=== PATIENT | female | born 1960 | race African-American/Black ===

== ENCOUNTER 2016-02-15 10:59 | Inpatient (IN) | payer OTHER ==
[2016-02-29] MEDS ORDERED: PREV30CA11 PO (13:45)
[2016-02-29] MEDS ORDERED: HYDR12.56 PO (13:45)
[2016-02-29] MEDS ORDERED: BENZ100 PO (13:45)
[2016-02-29] MEDS ORDERED: VENTAER INH (13:45)
[2016-02-29] MEDS ORDERED: LISI10TA3 PO (13:45)
[2016-04-04] MEDS ORDERED: FERR1TAB36 PO (09:33)
[2016-04-04] MEDS ORDERED: IPRA0.06 EACH NARE (09:33)
[2016-04-05] MEDS ORDERED: APREPITANT 40 MG CAP PO SCH (09:45)
[2016-04-05] MEDS ORDERED: ceFAZolin 2 GM PREMIX 50 ML IV SCH (09:45)
[2016-04-05] MEDS ORDERED: ONDANSETRON HCL 4 MG/2 ML VIAL IV PUSH SCH (09:45)
[2016-04-05] MEDS ORDERED: ACETAMINOPHEN 1000 MG/100 ML VIAL IV SCH (09:45)
[2016-04-05] MEDS ORDERED: metroNIDAZOLE 500 MG INJ 100 ML IV SCH (09:45)
[2016-04-05] MEDS ORDERED: METOPROLOL TARTRATE 25 MG TAB PO PRN (09:45)
[2016-04-05] MEDS ORDERED: INSULIN HUMAN REGULAR 1,000 UNITS/10 ML VIAL SQ PRN (09:45)
[2016-04-05] MEDS ORDERED: LACTATED RINGER'S 1000 ML IV SCH (10:00)
[2016-04-05] MEDS ORDERED: SODIUM CHLORID 0.9% 500 ML IV SCH (10:00)
[2016-04-05] MEDS ORDERED: ONDANSETRON HCL 4 MG/2 ML VIAL IV PUSH ONE (10:03)
[2016-04-05] MEDS ORDERED: NORMOSOL R INJ 1,000 ML IV ONE (10:03)
[2016-04-05] MEDS ORDERED: PROPOFOL 200 MG/20 ML AMP IV ONE (10:03)
[2016-04-05] MEDS ORDERED: PHENYLEPH/NS 1000 MCG/10 ML SYR IV ONE (10:03)
[2016-04-05] MEDS ORDERED: NEOSTIGMINE 3 MG/3 ML SYR IV ONE (10:03)
[2016-04-05] MEDS ORDERED: ePHEDrine/NS 50 MG/5 ML SYR IV ONE (10:03)
[2016-04-05] MEDS ORDERED: LACTATED RINGER'S 1000 ML INJ 1,000 ML IV ONE (10:03)
[2016-04-05 10:30] VITALS: BP 113/80; PULSE 87; RESP 18; TEMP 99.1; O2SAT 97
[2016-04-05] MEDS ORDERED: FAMOTIDINE 20 MG/2 ML VIAL ONE (11:10)
[2016-04-05] MEDS ORDERED: DEXAMETHASONE SOD PHOS 4 MG/ML VIAL ONE (11:28)
[2016-04-05] MEDS ORDERED: MIDAZOLAM HCL 2 MG/2 ML VIAL ONE (11:28)
[2016-04-05 11:53] LABS: ANION GAP 7 MEQ/L (5-15); AST (GOT) 6 U/L (15-37); BICARBONATE 29.7 MEQ/L (21.0-32.0); BLOOD UREA NITROGEN 13 MG/DL (7-18); CHLORIDE 102 MEQ/L (98-107); GLOMERULAR FILTRATION RATE 93 ML/MIN (>89); POTASSIUM 3.2 MEQ/L (3.5-5.1); SODIUM (NA) 139 MEQ/L (136-145)
[2016-04-05 11:56] LABS: ALKALINE PHOSPHATASE 63 U/L (45-117); ALT (GPT) 14 U/L (10-53); TOTAL BILIRUBIN ADULT 0.6 MG/DL (0.2-1.0)
[2016-04-05] MEDS ORDERED: BUPIVACAINE/EPINEPHRINE 0.25% 50 ML VIAL INFIL ONE (12:15)
[2016-04-05] MEDS ORDERED: SUGAMMADEX SODIUM 200 MG/2 ML VIAL IV PUSH ONE ×2 (13:04)
[2016-04-05] MEDS ORDERED: POTASSIUM CHLOR 20 MEQ PREMIX 100 ML ONE (15:36)
[2016-04-05] MEDS ORDERED: NALOXONE HCL 0.4 MG/ML AMP IV PRN (15:45)
[2016-04-05] MEDS ORDERED: SODIUM CHLORIDE 0.9% FLUSH 5 ML FLUSH IVF PRN (15:45)
[2016-04-05] MEDS ORDERED: ACETAMINOPHEN 325MG/HYDROcodone 7.5MG/15ML UDC PO PRN (15:45)
[2016-04-05] MEDS ORDERED: ONDANSETRON HCL 4 MG/2 ML VIAL IV PRN (15:45)
[2016-04-05] MEDS ORDERED: Post-op Orders (for Pharmacy) MISC XX ONE (15:45)
[2016-04-05] MEDS ORDERED: MAGNESIUM HYDROXIDE SUSP 30 ML CUP PO PRN (15:45)
[2016-04-05] MEDS ORDERED: FUROSEMIDE 40 MG/4 ML VIAL ONE (15:50)
[2016-04-05] MEDS ORDERED: MORPHINE SULFATE 30 MG/30 ML PCA IV SCH (16:00)
[2016-04-05] MEDS ORDERED: fentaNYL CITRATE 250 MCG/5 ML AMP ONE (16:15)
[2016-04-05] MEDS ORDERED: DO NOT ADM ANY ANTICOAGULANT DRUGS XX PRN (16:45)
[2016-04-05] MEDS ORDERED: *PROMETHAZINE 25 MG/ML VIAL PERIprocedural use ONLY ONE (16:46)
[2016-04-05] MEDS ORDERED: *morphine SULFATE 8 MG/ML PERIprocedure ONLY ONE (16:51)
[2016-04-05] MEDS: SODIUM CHLOR 0.9% 1000 ML INJ 1,000 ML IV SCH (18:00)
[2016-04-05 20:00] VITALS: BP 114/72; PULSE 84; RESP 20; TEMP 97; O2SAT 97
[2016-04-05] MEDS: SODIUM CHLORIDE 0.9% FLUSH 5 ML FLUSH IVF SCH (20:03)
[2016-04-05] MEDS: metroNIDAZOLE 500 MG INJ 100 ML IV SCH (20:03)
[2016-04-05] MEDS: PCA - TOTAL MG MORPHINE DELIVERED PER SHIFT SCH (22:00)
[2016-04-06] VITALS: BP 121/71; PULSE 81; RESP 20; TEMP 98.4; O2SAT 96
[2016-04-06] MEDS: SODIUM CHLOR 0.9% 1000 ML INJ 1,000 ML IV SCH ×3 (00:54→19:47)
[2016-04-06 04:00] VITALS: BP 118/66; PULSE 78; RESP 18; TEMP 97.2; O2SAT 98
[2016-04-06] MEDS: metroNIDAZOLE 500 MG INJ 100 ML IV SCH ×2 (04:03→10:42)
[2016-04-06] MEDS: PCA - TOTAL MG MORPHINE DELIVERED PER SHIFT SCH ×2 (06:00→09:39)
[2016-04-06 08:00] VITALS: BP 131/87; PULSE 89; RESP 18; TEMP 97.4; O2SAT 96
[2016-04-06] MEDS: SODIUM CHLORIDE 0.9% FLUSH 5 ML FLUSH IVF SCH ×2 (09:00→19:03)
[2016-04-06] MEDS: LISINOPRIL 10 MG TAB PO SCH (09:18)
[2016-04-06] MEDS: ACETAMINOPHEN 325MG/HYDROcodone 7.5MG/15ML UDC PO PRN ×3 (10:42→22:17)
[2016-04-06 12:00] VITALS: BP 129/72; PULSE 91; RESP 17; TEMP 97.9; O2SAT 95
[2016-04-06 15:00] VITALS: BP 161/79; PULSE 90; RESP 17; TEMP 99.5; O2SAT 94
[2016-04-06] MEDS: ENOXAPARIN SODIUM 40 MG/0.4 ML SYRINGE SQ SCH (15:18)
[2016-04-06 20:00] VITALS: BP 140/67; PULSE 101; RESP 20; TEMP 97.5; O2SAT 94
[2016-04-07] VITALS: BP 134/70; PULSE 96; RESP 20; TEMP 97; O2SAT 96
[2016-04-07] MEDS: MORPHINE SULFATE 4 MG/ML INJ IV PUSH PRN ×2 (00:58→11:27)
[2016-04-07] MEDS: ACETAMINOPHEN 325MG/HYDROcodone 7.5MG/15ML UDC PO PRN ×3 (04:20→17:32)
[2016-04-07 08:00] VITALS: BP 146/76; PULSE 97; RESP 17; TEMP 99.8; O2SAT 91
[2016-04-07] MEDS: SODIUM CHLORIDE 0.9% FLUSH 5 ML FLUSH IVF SCH (08:47)
[2016-04-07] MEDS: SODIUM CHLOR 0.9% 1000 ML INJ 1,000 ML IV SCH ×2 (08:49→15:58)
[2016-04-07] MEDS: LISINOPRIL 10 MG TAB PO SCH (08:49)
--- NOTE | 2016-04-07 11:15 | RADRPT ---
EXAM DATE/TIME: 04/07/2016 10:50 [facility] COMPARISON: No previous studies available for comparison. INDICATIONS : Right shoulder pain after hiatal hernia surgery. MEDICAL HISTORY : None. SURGICAL HISTORY : hiatal hernia surgery ENCOUNTER: Initial ACUITY: 1 day PAIN SCORE: 10/10 LOCATION: Right shoulder FINDINGS: Single AP view of the right shoulder demonstrates normal glenohumeral alignment. Mild a.c. joint dege nerative change. No acute abnormality seen. Lungs clear. CONCLUSION: No acute disease. Marcia Bergeron MD on April 07, 2016 at 11:13 Board Certified Radiologist. This report was verified electronically.
[2016-04-07 12:00] VITALS: BP 144/78; PULSE 96; RESP 17; TEMP 99.8; O2SAT 93
[2016-04-07] MEDS: ENOXAPARIN SODIUM 40 MG/0.4 ML SYRINGE SQ SCH (15:59)
[2016-04-07 16:00] VITALS: BP 144/75; PULSE 101; RESP 17; TEMP 98; O2SAT 95
--- NOTE | 2016-04-07 17:20 | HHI.PR ---
Subjective Subjective Notes shoulder pain slightly better no N/V Objective Vitals/I&O Vital Signs Date Time Temp Pulse Resp B/P Pulse Ox O2 Delivery O2 Flow Rate FiO2 04/07/16 16:00 98.0 101 17 144/75 95 04/05/16 18:00 Nasal Cannula 2 Abdomen: Post-op tenderness Extremities: Perfused Wound Wound : Wound Location: Abdomen Appearance: Clean & Dry A/P Assessment and Plan POD# 2 S/P repair of paraesophageal hernia with partial fundoplication Normal post op changes D/C home today Pablo Wei MD Apr 07, 2016 17:20
--- NOTE | 2016-04-12 12:27 | MP ---
cc: VERONIQUE MOISE DATE OF SURGERY: 04/12/2016 PREOPERATIVE DIAGNOSIS Gastroesophageal reflux unresponsive to medical management with paraesophageal hernia. POSTOPERATIVE DIAGNOSIS Gastroesophageal reflux unresponsive to medical management with paraesophageal hernia. PROCEDURE Robot-assisted laparoscopic paraesophageal with a 270-degree fundoplication. SURGEON Veronique Moise LEVEL VIAL GRINDER Ricki Veronica ANESTHESIA: General endotracheal. ESTIMATED BLOOD LOSS Less than 50 cc. FINDINGS Fatty liver as well as moderate size paraesophageal hernia. SPECIMENS None. COMPLICATIONS None. DETAILS OF PROCEDURE The patient was brought to the operating room and placed on the operating room table in the supine position. Bilateral sequential inflation devices were placed on the lower extremities. General anesthesia was instituted. A Young catheter was placed. Antibiotics were initiated. The abdomen was prepped and draped sterilely. A 5 mm port was placed 15 cm distal to the xiphoid just to the left of the midline. A 5 mm left upper quadrant port was placed. A robotic 8 mm left upper quadrant port, a robotic 8 mm right upper quadrant and a 5 mm right upper quadrant port was placed. The 5 mm epigastric port was switched out to a 12 mm port. Prior to placement of all ports, the skin and peritoneum were anesthetized with 0.25% Marcaine with epinephrine. The patient was then placed in reverse Trendelenburg position. The Stephenie-Flex retractor was placed. The left lobe of the liver was retracted. The abdominal cavity was inspected with findings as above. Seven 0 silk sutures were placed into the upper abdomen as well as a Magnolia drain and Ray-Margareth gauze. At this point, the laparoscopic towel was removed from the patient's bedside. The robot was then docked at the patient's bedside. I then broke scrub and went to the console. Attention was next focused on the patient's right. The hepatogastric ligament was opened. The right ling of the diaphragm was identified. It was dissected inferiorly from right to left. The angle of His was then taken down. The left ling of the diaphragm was dissected inferiorly. The graspers were then placed from right to left. A Magnolia drain was then brought around the GE junction which was then retracted into the abdominal cavity. The ling of the diaphragm was then further dissected anteriorly and posteriorly. The distal esophagus was dissected in the mediastinum and brought into the abdominal cavity. The vasculature on the greater curve of the stomach was from the GE junction for a third of the distance of the greater curve of the stomach. Attention was then focused back on the crura of the diaphragm. The hernia sac was excised. The ling of the diaphragm was approximated with 0 silk suture. Three interrupted [id number] stitches were placed inferiorly. The diaphragm came together without tension. A fundoplication was then created in the greater curvature of the stomach to the patient's right side around the lower esophagus the GE junction was created. The posterior stitch was placed to the diaphragm on the right side superiorly at the ten o'clock position. A stitch was placed from the esophagus to the crura of the diaphragm and to the stomach. Three additional interrupted stitches were placed from the esophagus to the stomach. On the left side of the esophagus, a one o'clock stitch was placed to the crura of the esophagus and the fundus of the stomach. Three additional interrupted stitches were placed to create a 270 degree wrap. The operative field was inspected. Hemostasis was assured. The robot was then undocked from the patient. The laparoscopic tower connected. The needles were removed from the abdominal cavity as well as the [place] and Ray-Margareth gauze. The Stephenie-Flex retractor was removed. The 10 mm port sites were approximated with #0 Vicryl suture using a fascial closure device. The C02 was then released. All ports were removed. All skin incisions were closed with 4-0 Monocryl. The abdominal wall was cleaned and a sterile dressing was placed. The patient was awakened and taken to the recovery room. All instruments and sponge and needle counts were reported as correct at the end of the procedure. MD ISABELLA Vinson/FELIX /4:17 PM /12:09 PM VALERIA
== END 2016-04-07 17:33 | disposition home or self-care (01) | DRG 328 ==
LOC: HSDI 04-05 09:08 → N07A 04-05 18:53
PROVIDERS: ADMIT Surgery; ATTEND Surgery
PROC: 0BQR4ZZ (ICD-10-PCS; 2016-04-05)
PROC: 0DV44ZZ Restriction of Esophagogastric Junction, Percutaneous Endoscopic Approach (ICD-10-PCS; 2016-04-05)
PROC: 8E0W4CZ Robotic Assisted Procedure of Trunk Region, Percutaneous Endoscopic Approach (ICD-10-PCS; 2016-04-05)
PROC: 0BQS4ZZ (ICD-10-PCS; principal; 2016-04-05 11:30)
DX: K44.9 Diaphragmatic hernia without obstruction or gangrene (principal); K76.0 Fatty (change of) liver, not elsewhere classified; I10 Essential (primary) hypertension; K21.9 Gastro-esophageal reflux disease without esophagitis; J45.909 Unspecified asthma, uncomplicated; Z87.891 Personal history of nicotine dependence
CPT/HCPCS: 73020; 80053; 94150; J0131; J0690; J1100; J1650; J1940; J2250; J2270; J2370; J2405; J2550; J2710; J3010; J3480; J7030; J7120; J8501

== ENCOUNTER 2016-04-22 21:52 | Observation (INO) | payer OTHER ==
[~2016-04-22 21:52] MED LIST: FERR1TAB36 PO; HYDR12.56 PO; IPRA0.06 EACH NARE; LISI10TA3 PO; PREV30CA11 PO; VENTAER INH
[2016-04-22 21:54] VITALS: BP 144/95; PULSE 90; RESP 16; TEMP 97.9; O2SAT 99
[2016-04-22] MEDS ORDERED: SODIUM CHLOR 0.9% 1000 ML INJ 1,000 ML IV SCH (22:06)
[2016-04-22] MEDS ORDERED: ONDANSETRON HCL 4 MG/2 ML VIAL IV PUSH ONE (22:15)
[2016-04-22] MEDS ORDERED: HYDROmorphone HCL PF 1 MG/ML VIAL IV PUSH ONE (22:15)
--- NOTE | 2016-04-22 22:25 | PD ---
HPI Chief Complaint: GI Complaint Time Seen by Provider: 22:18 (Laci Kan) Time Seen by Provider: 22:06 (Mike Nova MD) Travel History International Travel<30 days: No Contact w/Intl Traveler<30days: No Traveled to known affect area: No (Laci Kan) International Travel<30 days: No Contact w/Intl Traveler<30days: No (Mike Nova MD) History of Present Illness HPI 56-year-old female that presents to the ED for evaluation of epigastric abdominal pain as well as chest discomfort. Per patient this pain started about 2-3 hours ago. Per patient severe 10 out of 10. Patient did recently had surgery by Dr. Valle at this facility for a paraesophageal hernia repair with partial fundopiation. Patient states that this was done about 2-3 weeks ago. There is records of this being done at this facility. Patient states that she's been doing well and on Sunday she saw her doctor and he agreed the patient can start eating food if its sharp really finally. Patient has been doing well until apparently patient went to a family members house and apparently she developed the pain. Per patient she did not eat anything today other than some chicken. She denies any fevers chills or sweats. Nausea or vomiting. Per patient she did have a normal bowel movement today. The pain does not radiate. Denies any shortness of breath. Some of the history is obtained from the daughter as the patient is in severe pain and has difficulty speaking secondary to the pain. Pain has been ongoing for about 2-3 hours. No other medical problems at this time. (Laci Kan) HPI Agree with above. (Mike Nova MD) [facility] Past Medical History Anxiety: No Depression: No Cancer: No Cardiovascular Problems: No Diabetes: No Diminished Hearing: No Endocrine: No GERD: Yes Genitourinary: No Hepatitis: No Hiatal Hernia: Yes Hypertension: Yes Immune Disorder: No Musculoskeletal: Yes (bilat knee pain/arthritis) Neurologic: No Psychiatric: No Reproductive: No Respiratory: Yes (ASTHMA) Thyroid Disease: No Ulcer: No Tubal Ligation: Yes (Laci Kan) Past Surgical History Abdominal Surgery: Yes (colonoscopy) AICD: No Arteriovenous Shunt: No Cardiac Surgery: No Ear Surgery: No Endocrine Surgery: No Eye Surgery: No Genitourinary Surgery: No Gynecologic Surgery: Yes (tubal ligation) Insulin Pump: No Joint Replacement: No Oral Surgery: Yes (teeth removed for upper partial plate) Pacemaker: No Thoracic Surgery: No (Laci Kan) Social History Alcohol Use: No Tobacco Use: No Substance Use: No (Laci Kan) Allergies-Medications (Allergen,Severity, Reaction): Coded Allergies: No Known Allergies (Verified , 04/22/16) Reported Meds & Prescriptions Reported Meds & Active Scripts Active Reported Ipratropium Nasal 0.06% Nampa 2 Nampa EACH NARE QID Ventolin Hfa 18 GM Inh (Albuterol Sulfate) 90 Mcg/Act Aer 2 Puff INH Q6H PRN Lisinopril 10 Mg Tab 10 Mg PO DAILY Hydrochlorothiazide 12.5 Mg Tab 12.5 Mg PO DAILY Prevacid (Lansoprazole) 30 Mg Capdr 30 Mg PO DAILY (Mike Nova MD) Review of Systems Except as stated in HPI: all other systems reviewed are Neg (Laci Kan) Physical Exam Narrative GENERAL: SKIN: Warm and dry. HEAD: Atraumatic. Normocephalic. EYES: Pupils equal and round. No scleral icterus. No injection or drainage. ENT: No nasal bleeding or discharge. Mucous membranes pink and moist. Tongue is midline. No uvula deviation. NECK: Trachea midline. No JVD. CARDIOVASCULAR: Regular rate and rhythm. RESPIRATORY: No accessory muscle use. Clear to auscultation. Breath sounds equal bilaterally. GASTROINTESTINAL: Abdomen soft, tender with palpation in the epigastric area, nondistended. Hepatic and splenic margins not palpable. MUSCULOSKELETAL: Extremities without clubbing, cyanosis, or edema. No obvious deformities. Full range of motion of the upper and lower extremities bilaterally. 2+ pulses bilaterally. NEUROLOGICAL: Awake and alert. No obvious cranial nerve deficits. Motor grossly within normal limits. Five out of 5 muscle strength in the arms and legs. Normal speech. PSYCHIATRIC: Appropriate mood and affect; insight and judgment normal. (Laci Kan) Narrative Abdominal exam reveals no sign of peritonitis. (Mike Nova MD) Data Data Last Documented VS Vital Signs Date Time Temp Pulse Resp B/P Pulse Ox O2 Delivery O2 Flow Rate FiO2 04/22/16 22:10 22 04/22/16 21:54 97.9 90 144/95 99 (Mike Nova MD) Orders Complete Blood Count With Diff (04/22/16 22:06) Comprehensive Metabolic Panel (04/22/16 22:06) Lipase (04/22/16 22:06) Lactic Acid (04/22/16 22:06) Prothrombin Time / Inr (Pt) (04/22/16 22:06) Act Partial Throm Time (Ptt) (04/22/16 22:06) Urinalysis - C+S If Indicated (04/22/16 22:06) Iv Access Insert/Monitor (04/22/16 22:06) Sodium Chlor 0.9% 1000 Ml Inj (Ns 1000 M (04/22/16 22:06) Ct Abd/Pel W Iv Contrast(Rout) (04/22/16 22:11) Hydromorphone Pf Inj (Dilaudid Pf Inj) (04/22/16 22:15) Ondansetron Inj (Zofran Inj) (04/22/16 22:15) Chest, Single Ap (04/22/16 ) Iohexol 350 Inj (Omnipaque 350 Inj) (04/22/16 23:35) Piperacil-Tazo 4.5 Gm Premix (Zosyn 4.5 (04/23/16 00:15) Sodium Chlor 0.9% 1000 Ml Inj (Ns 1000 M (04/23/16 00:15) Admit Order (Ed Use Only) (04/23/16 00:29) (Mike Nova MD) Labs Laboratory Tests Test 04/22/16 04/22/16 22:25 23:20 Prothrombin Time 11.4 SEC Prothromb Time International 1.0 RATIO Ratio Activated Partial 23.9 SEC Thromboplast Time Sodium Level 142 MEQ/L Potassium Level 3.8 MEQ/L Chloride Level 107 MEQ/L Carbon Dioxide Level 25.5 MEQ/L Anion Gap 10 MEQ/L Blood Urea Nitrogen 12 MG/DL Creatinine 0.77 MG/DL Estimat Glomerular Filtration 93 ML/MIN Rate Random Glucose 101 MG/DL Lactic Acid Level 1.0 mmol/L Calcium Level 8.5 MG/DL Total Bilirubin 0.5 MG/DL Aspartate Amino Transf 171 U/L (AST/SGOT) Alanine Aminotransferase 84 U/L (ALT/SGPT) Alkaline Phosphatase 99 U/L Total Protein 7.9 GM/DL Albumin 3.6 GM/DL Lipase 1181 U/L White Blood Count 5.9 TH/MM3 Red Blood Count 4.72 MIL/MM3 Hemoglobin 11.3 GM/DL Hematocrit 35.3 % Mean Corpuscular Volume 74.9 FL Mean Corpuscular Hemoglobin 24.0 PG Mean Corpuscular Hemoglobin 32.0 % Concent Red Cell Distribution Width 16.8 % Platelet Count 350 TH/MM3 Mean Platelet Volume 8.5 FL Neutrophils (%) (Auto) 64.7 % Lymphocytes (%) (Auto) 27.6 % Monocytes (%) (Auto) 6.6 % Eosinophils (%) (Auto) 0.7 % Basophils (%) (Auto) 0.4 % Neutrophils # (Auto) 3.8 TH/MM3 Lymphocytes # (Auto) 1.6 TH/MM3 Monocytes # (Auto) 0.4 TH/MM3 Eosinophils # (Auto) 0.0 TH/MM3 Basophils # (Auto) 0.0 TH/MM3 CBC Comment AUTO DIFF Differential Comment AUTO DIFF CONFIRMED Ovalocytes 1+ Urine Color LIGHT-YELLOW Urine Turbidity CLEAR Urine pH 7.5 Urine Specific Horton 1.013 Urine Protein NEG mg/dL Urine Glucose (UA) NEG mg/dL Urine Ketones NEG mg/dL Urine Occult Blood NEG Urine Nitrite NEG Urine Bilirubin NEG Urine Urobilinogen LESS THAN 2.0 MG/DL Urine Leukocyte Esterase NEG Urine RBC LESS THAN 1 /hpf Urine WBC LESS THAN 1 /hpf Urine Squamous Epithelial <1 /hpf Cells Urine Mucus FEW /lpf Microscopic Urinalysis Comment CULT NOT INDICATED (Mike Nova MD) [facility] Medical Decision Making Medical Screen Exam Complete: Yes Emergency Medical Condition: Yes Medical Record Reviewed: Yes Differential Diagnosis Obstruction versus perforation versus postop surgery pain versus surgical pain versus chest pain versus pneumothorax versus pancreatitis versus cholecystitis versus acute abdomen Narrative Course 56-year-old female that presents to the ED for evaluation of severe epigastric pain. Patient was properly examined and was found to have signs and symptoms concerning for significant disease. Patient does have surgery. Recommendations transfer labs and imaging. Patient was given IV pain medications as well as fluids. This was discussed in my attending who agrees with plan. Case was signed out to him pending labs and imaging for disposition. (Laci Kan) Medical Screen Exam Complete: Yes Emergency Medical Condition: Yes Medical Record Reviewed: Yes Differential Diagnosis Constipation, Gastritis, Acute Cholecystitis, Biliary Colic, Pancreatitis, CRONIN , Hepatitis, Bowel Obstruction, Cystitis, Mesenteric Ischemia, AAA, Appendicitis , Renal Stone/Hydronephrosis, GERD, perforated viscous Narrative Course Last 24 hours Impressions Chest X-Ray 04/22/16 0000 Signed Impressions: Service Date/Time: Friday, April 22, 2016 22:36 - CONCLUSION: The lungs are clear. Clarence Castillo MD CBC & BMP Diagram 04/22/16 22:25 AST 171 ALT 84 Lipase 1181 Urinalysis no UTI Coags normal I, Dr. Nova, have reviewed the advance practice practitioner's documentation and am in agreement, met with the patient face to face, made the diagnosis, and the medical decision making was done by me. *My assessment and Findings: The patient appears to have pancreatitis and possibly acute cholecystitis. Zosyn ordered. Case discussed with surgery Dr. Veronica. He'll admit the patient. Maintenance fluids started. At time of admission abdomen soft with tenderness primarily in the epigastrium. No sign peritonitis. (Mike Nova MD) Diagnosis Primary Impression: Pancreatitis Qualified Code: K85.10 - Acute biliary pancreatitis, unspecified complication status Additional Impression: Cholecystitis Admitting Information Admitting Physician Requests: Admit (Mike Nova MD) Laci Kan Apr 22, 2016 22:24 Mike Nova MD Apr 23, 2016 00:26
[2016-04-22 22:54] LABS: AUTOMATED NEUTROPHIL # 3.8 TH/MM3 (1.8-7.7); BASOPHIL % 0.4 % (0.0-2.0); EOSINOPHIL % 0.7 % (0.0-4.0); HEMATOCRIT 35.3 % (35.0-46.0); LYMPH % 27.6 % (9.0-44.0); LYMPHOCYTE # 1.6 TH/MM3 (1.0-4.8); MEAN CELL VOLUME 74.9 FL (80.0-100.0); MONO % 6.6 % (0.0-8.0); NEUT % 64.7 % (16.0-70.0); PLATELET COUNT 350 TH/MM3 (150-450); RED BLOOD COUNT 4.72 MIL/MM3 (4.00-5.30); RED CELL DISTRIBUTION WIDTH 16.8 % (11.6-17.2); WHITE BLOOD COUNT 5.9 TH/MM3 (4.0-11.0)
--- NOTE | 2016-04-22 22:54 | RADRPT ---
EXAM DATE/TIME: 04/22/2016 22:36 [facility] COMPARISON: No previous studies available for comparison. INDICATIONS : Chest discomfort, abdominal pain starting today MEDICAL HISTORY : None. SURGICAL HISTORY : None. ENCOUNTER: Initial ACUITY: 1 day PAIN SCORE: 0/10 LOCATION: Bilateral lower chest FINDINGS: A single view of the chest demonstrates the lungs to be symmetrically aerated without evidence of mas s, infiltrate or effusion. The cardiomediastinal contours are unremarkable. Osseous structures are intact. CONCLUSION: The lungs are clear. Clarence Castillo MD on April 22, 2016 at 22:53 Board Certified Radiologist. This report was verified electronically.
[2016-04-22 22:56] LABS: APTT (PATIENT) 23.9 SEC (24.3-30.1); PROTHROMBIN TIME - PATIENT 11.4 SEC (9.8-11.6)
[2016-04-22 22:59] LABS: HEMO FLAGS AUTO DIFF
[2016-04-22 23:10] LABS: ALT (GPT) 84 U/L (10-53); ANION GAP 10 MEQ/L (5-15); AST (GOT) 171 U/L (15-37); BICARBONATE 25.5 MEQ/L (21.0-32.0); BLOOD UREA NITROGEN 12 MG/DL (7-18); CHLORIDE 107 MEQ/L (98-107); GLOMERULAR FILTRATION RATE 93 ML/MIN (>89); POTASSIUM 3.8 MEQ/L (3.5-5.1); SODIUM (NA) 142 MEQ/L (136-145)
[2016-04-22 23:11] LABS: ALKALINE PHOSPHATASE 99 U/L (45-117); TOTAL BILIRUBIN ADULT 0.5 MG/DL (0.2-1.0)
[2016-04-22] MEDS ORDERED: IOHEXOL 350 MG/ML 10 ML VIAL (for RAD DIAG) IV ONE (23:35)
[2016-04-22 23:49] LABS: BLOOD, URINE NEG (NEG); COMMENT (UR) CULT NOT INDICATED; CULTURE IF INDICATED CULT NOT INDICATED; GLUCOSE,URINE NEG (NEG); KETONE, URINE NEG (NEG); MUCUS URINE FEW /lpf (OCC); NITRITE,URINE NEG (NEG); PH, URINE 7.5 (5.0-8.5); SQUAMOUS EPITHELIAL CELL URINE <1 /hpf (0-5); URINE COLOR LIGHT-YELLOW (YELLW/STRAW)
--- NOTE | 2016-04-22 23:59 | RADRPT ---
EXAM DATE/TIME: 04/22/2016 23:35 [facility] COMPARISON: No previous studies available for comparison. INDICATIONS : Upper medial abdominal pain with nausea and vomiting starting this evening. Hernia repair surgery 3 w eeks ago. IV CONTRAST: 93 cc Omnipaque 350 (iohexol) IV ORAL CONTRAST: No oral contrast ingested. RADIATION DOSE: 15.15 CTDIvol (mGy) MEDICAL HISTORY : Gastroesophageal reflux disease. Hypertension. Hernia, hiatal. SURGICAL HISTORY : Tubal ligation. Hiatal hernia repair. ENCOUNTER: Initial ACUITY: 1 day PAIN SCALE: 10/10 LOCATION: upper quadrant abdomen TECHNIQUE: Volumetric scanning of the abdomen and pelvis was performed. Using automated exposure control and ad justment of the mA and/or kV according to patient size, radiation dose was kept as low as reasonably achievable to obtain optimal diagnostic quality images. FINDINGS: Scattered atherosclerotic calcifications of the aorta and iliac vessels are noted. There is a cyst pr esent in the liver anterior to the gallbladder measuring 1.6 cm with adjacent 5 mm cyst on image 40. On axial image 45 there is evidence of gallbladder wall thickening and edema, and the possibility of cholecystitis is not excluded. The adrenal glands and kidneys are unremarkable. Spleen unremarkable. There is mild prominence of the pancreatic duct up to 4.7 mm and axial image 36. Common bile duct bandar sures 7 mm in maximal dimension. There are no pleural or pericardial effusions. There is focal area o f decreased density in the left lobe of the liver artery stick of fatty infiltration seen best on papi ge 25. Urinary bladder is unremarkable. The uterus is abnormal with multiple hypodense masses seen ch aracteristic of a fibroid uterus. The largest mass measures 4.4 cm. There is no evidence of bowel obs truction. The appendix is normal. There is no adenopathy or aneurysm. There is a moderate hiatal sherrie ia and the lung bases are clear. Osseous structures are intact. CONCLUSION: 1. Mild prominence of the common bile duct and pancreatic duct without discrete mass. 2. Liver cysts and fatty infiltration of the liver. 3. Abnormal appearance of the gallbladder with wall thickening/edema versus tree cholecystic fluid. T he possibility of cholecystitis is not excluded. 4. Hiatal hernia and evidence of previous fundoplication. 5. No inflammatory changes are seen within the pelvis. Geo Roca MD on April 22, 2016 at 23:52 Board Certified Radiologist. This report was verified electronically.
[2016-04-23] VITALS (7 sets, daily range): BP systolic 102–147; BP diastolic 66–88; PULSE 63–88; RESP 17–20; TEMP 96.4–98.2; O2SAT 96–100
[2016-04-23] MEDS ORDERED: PIPERACIL-TAZO 4.5 GM PREMIX 100 ML IV ONE (00:15)
[2016-04-23 00:34] LABS: OVALOCYTES 1+ (NORMAL)
[2016-04-23 00:35] LABS: SCAN/DIFF AUTO DIFF CONFIRMED
[2016-04-23] MEDS ORDERED: SODIUM CHLORIDE 0.9% FLUSH 5 ML FLUSH IV PRN (00:45)
[2016-04-23] MEDS: SODIUM CHLOR 0.9% 1000 ML INJ 1,000 ML IV SCH ×4 (00:57→22:02)
[2016-04-23] MEDS: PANTOPRAZOLE SODIUM 40 MG VIAL IV PUSH SCH ×2 (00:57→09:04)
[2016-04-23] MEDS ORDERED: HYDROmorphone HCL PF 1 MG/ML VIAL IV PUSH ONE (02:30)
[2016-04-23] MEDS: PIPERACIL-TAZO 3.375 GM PREMIX 50 ML IV SCH ×3 (05:33→17:02)
[2016-04-23] MEDS: HYDROCHLOROTHIAZIDE 12.5 MG CAP PO SCH (09:03)
[2016-04-23] MEDS: LISINOPRIL 10 MG TAB PO SCH (09:04)
[2016-04-23] MEDS: SODIUM CHLORIDE 0.9% FLUSH 5 ML FLUSH IV SCH ×2 (09:04→19:53)
--- NOTE | 2016-04-23 09:24 | HHI.HP ---
[facility] Service General Surgery Primary Care Physician Ashley Murireta MD Admission Diagnosis Pancreatitis, Poss Cholecystitis Chief Complaint: Abdominal pain History of Present Illness 56yo F presents with abdominal pain. This was acute in onset a few hours after her last meal of mesh potatoes and chicken yesterday. It was severe and radiating from epigastrium to bilateral upper abdomen. She states that she had one similar episode a month or so ago. The patient had nausea and dry heaving. He denies fever or chills. She underwent robot-assisted paraesophageal hernia repair with fundoplication on April 05. She has been doing well postoperatively and was advanced to regular food. She has not had any regurgitation or feeling of food catching. She was evaluated in the emergency department and noted to have elevated lipase and CT scan revealing acute cholecystitis and mildly dilated common bile duct and pancreatic duct. Review of Systems Constitutional: DENIES: Fever, Chills Eyes: DENIES: Eye inflammation, Eye pain Respiratory: DENIES: Cough, Shortness of breath Cardiovascular: DENIES: Chest pain, Palpitations Gastrointestinal: COMPLAINS OF: Abdominal pain, Nausea Integumentary: DENIES: Pruritus, Rash Neurologic: DENIES: Headache, Localized weakness Past Family Social History Past Medical History Hypertension Asthma Past Surgical History Tubal ligation Paraesophageal hernia repair Reported Medications Reported Meds & Active Scripts Active Reported Ipratropium Nasal 0.06% [employer] 2 [employer] EACH NARE QID Ventolin Hfa 18 GM Inh (Albuterol Sulfate) 90 Mcg/Act Aer 2 Puff INH Q6H PRN Lisinopril 10 Mg Tab 10 Mg PO DAILY Hydrochlorothiazide 12.5 Mg Tab 12.5 Mg PO DAILY Prevacid (Lansoprazole) 30 Mg Capdr 30 Mg PO DAILY Allergies: Coded Allergies: No Known Allergies (Verified , 04/22/16) Active Ordered Medications Current Medications Medications (Trade) Dose Ordered Sig/Elisa Route Start Time Stop Time Status Last Admin (NS 1000 ml Inj) 1,000 ml @ 125 mls/hr Q8H IV 04/23/16 00:15 04/23/16 09:04 (NS Flush) 2 ml UNSCH PRN IV 04/23/16 00:45 IV Flush 2 ml 2 ml BID IV 04/23/16 09:00 04/23/16 09:04 (Zosyn 3.375 Gm Premix) 50 ml @ 100 mls/hr Q6H IV 04/23/16 06:00 04/23/16 05:33 (Protonix Inj) 40 mg DAILY IV PUSH 04/23/16 00:45 04/23/16 09:04 (Microzide) 12.5 mg DAILY PO 04/23/16 09:00 04/23/16 09:03 (Prinivil) 10 mg DAILY PO 04/23/16 09:00 04/23/16 09:04 Family History Noncontributory Social History She denies alcohol tobacco or drug use. Physical Exam Vital Signs Vital Signs Date Time Temp Pulse Resp B/P Pulse Ox O2 Delivery O2 Flow Rate FiO2 04/23/16 07:58 98.2 67 17 125/72 97 04/23/16 02:53 98.2 71 19 132/83 96 04/23/16 01:54 63 18 147/75 99 04/22/16 22:10 22 04/22/16 21:54 97.9 90 16 144/95 99 Physical Exam GENERAL: Awake and alert. No acute distress. Cooperative. HEAD: Normocephalic. Atraumatic. EYES: Pupils equal round and reactive to light bilaterally. No scleral icterus. CHEST: Lungs clear to auscultation bilaterally with no wheezing or rhonchi. No respiratory distress. CARDIOVASCULAR: Regular rate and rhythm. ABDOMEN: Round. Soft. Incisions healing well. Mild tenderness in the epigastrium and upper abdomen bilaterally. No rebound or guarding. Negative Aldana sign. EXTREMITIES: No cyanosis or edema. SKIN: Warm, dry, nonjaundiced. Laboratory Laboratory Tests Test 04/22/16 04/22/16 22:25 23:20 Prothrombin Time 11.4 Prothromb Time International 1.0 Ratio Activated Partial 23.9 Thromboplast Time Sodium Level 142 Potassium Level 3.8 Chloride Level 107 Carbon Dioxide Level 25.5 Anion Gap 10 Blood Urea Nitrogen 12 Creatinine 0.77 Estimat Glomerular Filtration 93 Rate Random Glucose 101 Lactic Acid Level 1.0 Calcium Level 8.5 Total Bilirubin 0.5 Aspartate Amino Transf 171 (AST/SGOT) Alanine Aminotransferase 84 (ALT/SGPT) Alkaline Phosphatase 99 Total Protein 7.9 Albumin 3.6 Lipase 1181 White Blood Count 5.9 Red Blood Count 4.72 Hemoglobin 11.3 Hematocrit 35.3 Mean Corpuscular Volume 74.9 Mean Corpuscular Hemoglobin 24.0 Mean Corpuscular Hemoglobin 32.0 Concent Red Cell Distribution Width 16.8 Platelet Count 350 Mean Platelet Volume 8.5 Neutrophils (%) (Auto) 64.7 Lymphocytes (%) (Auto) 27.6 Monocytes (%) (Auto) 6.6 Eosinophils (%) (Auto) 0.7 Basophils (%) (Auto) 0.4 Neutrophils # (Auto) 3.8 Lymphocytes # (Auto) 1.6 Monocytes # (Auto) 0.4 Eosinophils # (Auto) 0.0 Basophils # (Auto) 0.0 CBC Comment AUTO DIFF Differential Comment AUTO DIFF CONFIRMED Ovalocytes 1+ Urine Color LIGHT-YELLOW Urine Turbidity CLEAR Urine pH 7.5 Urine Specific [place] 1.013 Urine Protein NEG Urine Glucose (UA) NEG Urine Ketones NEG Urine Occult Blood NEG Urine Nitrite NEG Urine Bilirubin NEG Urine Urobilinogen LESS THAN 2.0 Urine Leukocyte Esterase NEG Urine RBC LESS THAN 1 Urine WBC LESS THAN 1 Urine Squamous Epithelial <1 Cells Urine Mucus FEW Microscopic Urinalysis Comment CULT NOT INDICATED Result Diagram: 04/22/16222404/22/162224 Imaging Last Impressions Abdomen/Pelvis CT 04/22/162210 Signed Impressions: Service Date/Time: Friday, April 22, 2016 23:35 - CONCLUSION: 1. Mild prominence of the common bile duct and pancreatic duct without discrete mass. 2. Liver cysts and fatty infiltration of the liver. 3. Abnormal appearance of the gallbladder with wall thickening/edema versus tree cholecystic fluid. The possibility of cholecystitis is not excluded. 4. Hiatal hernia and evidence of previous fundoplication. 5. No inflammatory changes are seen within the pelvis. Geo Roca MD Chest X-Ray 04/22/16 0000 Signed Impressions: Service Date/Time: Friday, April 22, 2016 22:36 - CONCLUSION: The lungs are clear. Clarence Castillo MD Assessment and Plan Assessment and Plan 56-year-old female with acute cholecystitis and mild gallstone pancreatitis. She probably has passed a stone. She is about 2-1/2 weeks postop from a robot- assisted paraesophageal hernia repair. Recheck laps in the morning. I'll start her on clear liquids. If her pain continues to rony she may be able to be discharged tomorrow. Continue Zosyn and plan for nonoperative treatment with a course of antibiotics for her acute cholecystitis due to recent surgery. Ricki Veronica MD Apr 23, 2016 09:24
[2016-04-23] MEDS ORDERED: oxyCODONE/ACETAMINOPHEN 5 MG/325 MG TAB PO PRN ×2 (10:00)
[2016-04-23] MEDS ORDERED: HYDROmorphone HCL PF 1 MG/ML VIAL IV PUSH PRN (10:00)
[2016-04-23] MEDS: ONDANSETRON HCL 4 MG/2 ML VIAL IV PUSH PRN ×2 (10:07→19:53)
[2016-04-24] MEDS: PIPERACIL-TAZO 3.375 GM PREMIX 50 ML IV SCH ×3 (00:22→12:41)
[2016-04-24 04:30] VITALS: BP 107/62; PULSE 88; RESP 21; TEMP 98.8; O2SAT 98
[2016-04-24 05:05] LABS: AUTOMATED NEUTROPHIL # 1.8 TH/MM3 (1.8-7.7); BASOPHIL # 0.1 TH/MM3 (0-0.2); BASOPHIL % 1.5 % (0.0-2.0); EOSINOPHIL # 0.1 TH/MM3 (0-0.4); HEMATOCRIT 34.4 % (35.0-46.0); LYMPH % 41.9 % (9.0-44.0); LYMPHOCYTE # 1.7 TH/MM3 (1.0-4.8); MEAN CELL VOLUME 75.2 FL (80.0-100.0); MEAN CORPUSCULAR HEMOGLOBIN 23.5 PG (27.0-34.0); MEAN CORPUSCULAR HGB CONC 31.3 % (32.0-36.0); MONO % 6.9 % (0.0-8.0); NEUT % 46.7 % (16.0-70.0); PLATELET COUNT 299 TH/MM3 (150-450); RED BLOOD COUNT 4.58 MIL/MM3 (4.00-5.30); RED CELL DISTRIBUTION WIDTH 16.7 % (11.6-17.2); WHITE BLOOD COUNT 3.9 TH/MM3 (4.0-11.0)
[2016-04-24 05:06] LABS: HEMO FLAGS AUTO DIFF
[2016-04-24] MEDS: ONDANSETRON HCL 4 MG/2 ML VIAL IV PUSH PRN (05:35)
[2016-04-24 05:46] LABS: BICARBONATE 26.3 MEQ/L (21.0-32.0); POTASSIUM 3.6 MEQ/L (3.5-5.1)
[2016-04-24 07:36] VITALS: BP 124/83; PULSE 82; RESP 18; TEMP 98.3; O2SAT 96
[2016-04-24 08:13] LABS: SCAN/DIFF AUTO DIFF CONFIRMED
[2016-04-24 08:14] LABS: OVALOCYTES 1+ (NORMAL)
[2016-04-24] MEDS: PANTOPRAZOLE SODIUM 40 MG VIAL IV PUSH SCH (09:19)
[2016-04-24] MEDS: SODIUM CHLORIDE 0.9% FLUSH 5 ML FLUSH IV SCH (09:19)
[2016-04-24] MEDS: LISINOPRIL 10 MG TAB PO SCH (09:20)
[2016-04-24] MEDS: HYDROCHLOROTHIAZIDE 12.5 MG CAP PO SCH (09:20)
[2016-04-24] MEDS: SODIUM CHLOR 0.9% 1000 ML INJ 1,000 ML IV SCH (09:25)
[2016-04-24 11:21] VITALS: BP 130/84; PULSE 79; RESP 18; TEMP 98.2; O2SAT 97
[2016-04-24] MEDS ORDERED: AUGM875T PO (12:08)
[2016-04-24 13:12] LABS: INDIRECT BILIRUBIN 0.5 MG/DL (0.0-0.8); TOTAL BILIRUBIN ADULT 0.6 MG/DL (0.2-1.0)
--- NOTE | 2016-04-24 18:01 | HHI.DS ---
Discharge Summary Admission Date Apr 23, 2016 at 00:32 Discharge Date: Apr 24, 2016 Admitting Diagnosis Pancreatitis, Poss Cholecystitis Brief History 56yo F presents with abdominal pain. This was acute in onset a few hours after her last meal of mesh potatoes and chicken yesterday. It was severe and radiating from epigastrium to bilateral upper abdomen. She states that she had one similar episode a month or so ago. The patient had nausea and dry heaving. He denies fever or chills. She underwent robot-assisted paraesophageal hernia repair with fundoplication on April 05. She has been doing well postoperatively and was advanced to regular food. She has not had any regurgitation or feeling of food catching. She was evaluated in the emergency department and noted to have elevated lipase and CT scan revealing acute cholecystitis and mildly dilated common bile duct and pancreatic duct. CBC/BMP: 04/24/16 0434 04/24/16 0434 Significant Findings Laboratory Tests Test 04/22/16 04/22/16 04/24/16 22:25 23:20 04:34 Activated Partial 23.9 SEC Thromboplast Time (24.3-30.1) Aspartate Amino Transf 171 U/L (15-37) 104 U/L (15-37) (AST/SGOT) Alanine Aminotransferase 84 U/L (10-53) 138 U/L (10-53) (ALT/SGPT) Lipase 1181 U/L (73-393) Hemoglobin 11.3 GM/DL 10.8 GM/DL (11.6-15.3) (11.6-15.3) Mean Corpuscular Volume 74.9 FL 75.2 FL (80.0-100.0) (80.0-100.0) Mean Corpuscular Hemoglobin 24.0 PG 23.5 PG (27.0-34.0) (27.0-34.0) Ovalocytes 1+ (NORMAL) 1+ (NORMAL) Urine Mucus FEW /lpf (OCC) White Blood Count 3.9 TH/MM3 (4.0-11.0) Hematocrit 34.4 % (35.0-46.0) Mean Corpuscular Hemoglobin 31.3 % Concent (32.0-36.0) Chloride Level 109 MEQ/L (98-107) Blood Urea Nitrogen 5 MG/DL (7-18) Estimat Glomerular Filtration 78 ML/MIN (>89) Rate Albumin 3.0 GM/DL (3.4-5.0) PE at Discharge NAD, AAO Abd, soft, ntd, mild distention Hospital Course She tolerating low fat diet for lunch. Pain is improved and she only has mild bloating. She is ready for dc/. Pt Condition on Discharge: Good Discharge Disposition: Discharge Home Discharge Instructions DIET: Follow Instructions for: Heart Healthy Diet Activities you can perform: Regular-No Restrictions Follow up Referrals: Surgical - 2 Weeks with Pablo Wei MD New Medications: Amoxicillin-Clavulanate (Augmentin) 875-125 mg Tab 875 MG PO BID not for use in CrCl <30 ml/min. Infection #10 Ref 0 TAB Continued Medications: Albuterol 18 GM Inh (Ventolin Hfa 18 GM Inh) 90 Mcg/Act Aer 2 PUFF INH Q6H PRN SHORTNESS OF BREATH #1 Ref 0 INHALER Hydrochlorothiazide (Hydrochlorothiazide) 12.5 Mg Tab 12.5 MG PO DAILY #30 Ref 0 TAB Ipratropium Nasal (Ipratropium Nasal) 0.06% [place] 2 SPRAY EACH NARE QID #1 Ref 0 BOTTLE Lansoprazole (Prevacid) 30 Mg Capdr 30 MG PO DAILY Ref 0 CAP Lisinopril (Lisinopril) 10 Mg Tab 10 MG PO DAILY #30 Ref 0 TAB Ricki Veronica MD Apr 24, 2016 18:01
== END 2016-04-24 18:01 | disposition home or self-care (01) ==
LOC: NEPC 21:52 → INTOOBSV 04-23 00:32 → NEDA 04-23 00:32 → NEPHCDU 04-23 02:47 → UNDODISIN 04-24 18:01
PROVIDERS: ADMIT Surgery; ATTEND Surgery
DX: K85.90 Acute pancreatitis without necrosis or infection, unspecified (principal); K81.9 Cholecystitis, unspecified; I10 Essential (primary) hypertension; K21.9 Gastro-esophageal reflux disease without esophagitis; J45.909 Unspecified asthma, uncomplicated
CPT/HCPCS: 71010; 74177; 80048; 80053; 80076; 81001; 83605; 83690; 85025; 85610; 85730; 96361; 96374; 96375; 99285; C9113; G0378; J1170; J2405; J2543; J7030; Q9967

== ENCOUNTER → 2016-05-31 | Day surgery (SDC) | payer OTHER ==
[~2016-05-31] VITALS: Ht 167.6 cm; Wt 90.8 kg
[~2016-05-31] MED LIST changes: +*morphine SULFATE 8 MG/ML PERIprocedure ONLY ONE; +ACETAMINOPHEN 1000 MG/100 ML VIAL IV SCH; +AUGM875T PO; +BUPIVACAINE/EPINEPHRINE 0.25% 50 ML VIAL ONE; +DEXAMETHASONE SOD PHOS 4 MG/ML VIAL ONE; +DO NOT ADM ANY ANTICOAGULANT DRUGS XX PRN; +FAMOTIDINE 20 MG/2 ML VIAL ONE; -FERR1TAB36 PO; +INSULIN HUMAN REGULAR 1,000 UNITS/10 ML VIAL SQ PRN; +LACTATED RINGER'S 1000 ML IV SCH; +METOCLOPRAMIDE HCL 10 MG/2 ML VIAL ONE; +METOPROLOL TARTRATE 25 MG TAB PO PRN; +MIDAZOLAM HCL 2 MG/2 ML VIAL ONE; +MORPHINE SULFATE 4 MG/ML INJ IV PRN; +NEOSTIGMINE 3 MG/3 ML SYR IV ONE; +ONDANSETRON HCL 4 MG/2 ML VIAL IV PUSH ONE; +ONDANSETRON HCL 4 MG/2 ML VIAL IV PUSH SCH; +PROMETHAZINE INJ 25 MG/ML VIAL ONE; +PROPOFOL 200 MG/20 ML AMP IV ONE; +SODIUM CHLORID 0.9% 500 ML IV SCH; +ceFAZolin 2 GM PREMIX 50 ML IV SCH; +metroNIDAZOLE 500 MG INJ 100 ML IV SCH; +oxyCODONE/ACETAMINOPHEN 5 MG/325 MG TAB PO PRN
[2016-05-31 08:18] VITALS: BP 144/87; PULSE 74; RESP 20; TEMP 97.8; O2SAT 99
[2016-05-31 14:21] VITALS: BP 145/82; PULSE 62; RESP 16; TEMP 98.5; O2SAT 97
--- NOTE | 2016-06-01 12:11 | MP ---
cc: PABLO WEI DATE OF 1960 DATE OF OPERATION 05/31/2016 PREOPERATIVE DIAGNOSIS Cholelithiasis with recent gallstone pancreatitis. POSTOPERATIVE DIAGNOSIS Cholelithiasis with recent gallstone pancreatitis. PROCEDURE Laparoscopic cholecystectomy. SURGEON Pablo Wei MD ANESTHESIA General endotracheal anesthesia. ESTIMATED BLOOD LOSS Scant. FINDINGS Gallbladder with stones. SPECIMEN Gallbladder with stones. COMPLICATIONS None. OPERATION The patient was brought to the operating room and placed on the operating table in a supine position. A bilateral sequential inflation device was placed on the lower extremities. General anesthesia was instituted, antibiotics initiated. The abdomen was prepped and draped sterilely. A point in the periumbilical region was anesthetized with 0.25% Marcaine with epinephrine. A skin incision was made. A 5 mm Optiview port was placed under direct vision, a pneumoperitoneum created. Under direct vision a 12 mm subxiphoid and two 5 mm right upper quadrant ports were placed. Prior to placement of all ports the skin and peritoneum were anesthetized with 0.25% Marcaine with epinephrine. The patient was placed in reverse Trendelenburg position, right side up. The gallbladder was retracted into the upper abdomen. The infundibulum was retracted. Calot's triangle was opened. The hepatoduodenal ligament was incised. The cystic artery was identified. It was circumferentially dissected with the Harmonic scalpel and then divided with the Harmonic scalpel. The cystic duct was identified, circumferentially dissected and divided with the Harmonic scalpel. The gallbladder was removed from the liver bed using the Harmonic scalpel. It was retrieved from the peritoneal cavity in an Endopouch through the 12 mm port site. The operative site was inspected. Hemostasis was present. There was no evidence of bile leak. CO2 was released. All ports were removed. All skin incisions were closed with 4-0 Monocryl. The abdominal wall was cleaned and a sterile dressing placed. The patient was awakened and taken to the recovery room. Pablo Wei MD JS/SSB /11:56 AM /12:08 PM
== END | disposition home or self-care (01) ==
LOC: HSDC 06:37
PROVIDERS: ATTEND Surgery
DX: K81.1 Chronic cholecystitis (principal)
CPT/HCPCS: 00790; 47562; 88304; J0131; J1100; J2250; J2270; J2405; J2550; J2710; J2765; J3010; 92950

== ENCOUNTER 2017-04-05 19:05 | Emergency (ER) | payer OTHER ==
[~2017-04-05] VITALS: Ht 167.6 cm; Wt 92.7 kg
[~2017-04-05 19:05] MED LIST changes: -*morphine SULFATE 8 MG/ML PERIprocedure ONLY ONE; -ACETAMINOPHEN 1000 MG/100 ML VIAL IV SCH; -AUGM875T PO; -BUPIVACAINE/EPINEPHRINE 0.25% 50 ML VIAL ONE; -DEXAMETHASONE SOD PHOS 4 MG/ML VIAL ONE; -DO NOT ADM ANY ANTICOAGULANT DRUGS XX PRN; -FAMOTIDINE 20 MG/2 ML VIAL ONE; -INSULIN HUMAN REGULAR 1,000 UNITS/10 ML VIAL SQ PRN; -LACTATED RINGER'S 1000 ML IV SCH; -METOCLOPRAMIDE HCL 10 MG/2 ML VIAL ONE; -METOPROLOL TARTRATE 25 MG TAB PO PRN; -MIDAZOLAM HCL 2 MG/2 ML VIAL ONE; -MORPHINE SULFATE 4 MG/ML INJ IV PRN; -NEOSTIGMINE 3 MG/3 ML SYR IV ONE; -ONDANSETRON HCL 4 MG/2 ML VIAL IV PUSH ONE; -ONDANSETRON HCL 4 MG/2 ML VIAL IV PUSH SCH; -PREV30CA11 PO; +PREV30CA36 PO; -PROMETHAZINE INJ 25 MG/ML VIAL ONE; -PROPOFOL 200 MG/20 ML AMP IV ONE; -SODIUM CHLORID 0.9% 500 ML IV SCH; -ceFAZolin 2 GM PREMIX 50 ML IV SCH; -metroNIDAZOLE 500 MG INJ 100 ML IV SCH; -oxyCODONE/ACETAMINOPHEN 5 MG/325 MG TAB PO PRN
[2017-04-05 19:09] VITALS: BP 123/87; PULSE 78; RESP 16; TEMP 98.5; O2SAT 96
[2017-04-05] MEDS ORDERED: ASPI81CH6 CHEW (22:03)
[2017-04-05] MEDS ORDERED: SODIUM CHLOR 0.9% 1000 ML INJ 1,000 ML IV SCH (22:08)
[2017-04-05] MEDS ORDERED: ONDANSETRON HCL 4 MG/2 ML VIAL IVP ONE (22:15)
[2017-04-05] MEDS ORDERED: MORPHINE SULFATE 2 MG/ML INJ IM ONE (22:15)
[2017-04-05] MEDS ORDERED: SODIUM CHLORIDE 0.9% FLUSH 10 ML FLUSH IV FLUSH PRN (22:15)
--- NOTE | 2017-04-05 22:18 | PD ---
HPI Chief Complaint: Abdominal Pain Time Seen by Provider: 22:01 (Matthew Hanson) Time Seen by Provider: 22:01 (Ricki Hong MD) Travel History International Travel<30 days: No Contact w/Intl Traveler<30days: No Traveled to known affect area: No (Matthew Hanson) History of Present Illness HPI 57-year-old Afro[place] female is emergency Department with left upper quadrant abdominal pain which started approximately 10 AM this morning. Patient states it was excruciating at that time. She denies changes in her bowels or bladder at this time however. Patient denies vomiting but she has had some nausea through the day. Patient has no fever chills or other symptoms. She denies history of pancreatitis, or liver problems in the past. Patient has had her gallbladder removed. Patient denies chest pain or shortness of breath. She has had no diarrhea. Pain is currently 2 out of 10. At worst it was 9 out of 10 earlier today. Patient was seen at the [facility] urgent care, and had a x-ray performed. She was given 60 mg Toradol. The patient states they wanted to come here for a CT scan and to be further evaluated. I do not have the reports from that urgent care. She has no known drug allergies. (Matthew Hanson) [facility] Past Medical History Anxiety: No Depression: No Cancer: No Cardiovascular Problems: No Diabetes: No Diminished Hearing: No Endocrine: No Gastrointestinal Disorders: Yes (acid reflux) GERD: Yes Genitourinary: No Hepatitis: No Hiatal Hernia: Yes Hypertension: Yes (on meds) Immune Disorder: No Musculoskeletal: Yes (bilat knee pain/arthritis) Neurologic: No Psychiatric: No Reproductive: No Respiratory: Yes (ASTHMA) Immunizations Current: Yes Thyroid Disease: No Ulcer: No Tetanus Vaccination: < 5 Years Influenza Vaccination: Yes Menopausal: Yes Tubal Ligation: Yes (Matthew Hanson) Past Surgical History Abdominal Surgery: Yes (colonoscopy, HERNIA REPAIR) AICD: No Arteriovenous Shunt: No Cardiac Surgery: No Ear Surgery: No Endocrine Surgery: No Eye Surgery: No Genitourinary Surgery: No Gynecologic Surgery: Yes (tubal ligation) Insulin Pump: No Joint Replacement: No Oral Surgery: Yes (teeth removed for upper partial plate) Pacemaker: No Thoracic Surgery: No Other Surgery: Yes (Matthew Hanson) Social History Alcohol Use: No Tobacco Use: No Substance Use: No (Matthew Hanson) Allergies-Medications (Allergen,Severity, Reaction): Coded Allergies: No Known Allergies (Verified Adverse Reaction, Unknown, 04/05/17) Reported Meds & Prescriptions Reported Meds & Active Scripts Active Reported Aspirin Low Dose (Aspirin) 81 Mg Chew 81 Mg CHEW DAILY Ipratropium Nasal 0.06% [place] 2 [place] EACH NARE QID Ventolin Hfa 18 GM Inh (Albuterol Sulfate) 90 Mcg/Act Aer 2 Puff INH Q6H PRN Lisinopril 10 Mg Tab 10 Mg PO DAILY Hydrochlorothiazide 12.5 Mg Tab 12.5 Mg PO DAILY Prevacid (Lansoprazole) 30 Mg Capdr 30 Mg PO DAILY (Ricki Hong MD) Review of Systems Except as stated in HPI: all other systems reviewed are Neg General / Constitutional: No: Fever, Chills Eyes: No: Visual changes HENT: No: Headaches Cardiovascular: No: Chest Pain or Discomfort Respiratory: No: Shortness of Breath Gastrointestinal: Positive: Nausea, Abdominal Pain, Loss of Appetite, No: Vomiting, Diarrhea Genitourinary: No: Urgency, Frequency, Dysuria Musculoskeletal: No: Pain Skin: No Rash Neurologic: No: Weakness Psychiatric: No: Depression Endocrine: No: Polydipsia Hematologic/Lymphatic: No: Easy Bruising (Matthew Hanson) Physical Exam Narrative GENERAL: Patient appears in no acute distress. SKIN: Warm and dry. Normal color. Normal turgor. No diaphoresis. HEAD: Atraumatic. Normocephalic. EYES: Pupils equal and round. No scleral icterus. No injection or drainage. ENT: No nasal bleeding or discharge. Mucous membranes pink and moist. Pharynx is clear. Airway is patent. NECK: Trachea midline. Supple and nontender.. CARDIOVASCULAR: Regular rate and rhythm. RESPIRATORY: No accessory muscle use. Clear to auscultation. Breath sounds equal bilaterally. GASTROINTESTINAL: Abdomen soft, non-tender, nondistended. Hepatic and splenic margins not palpable. There is no specific point tenderness or rebound. No CVA tenderness. No palpable masses. MUSCULOSKELETAL: Extremities without clubbing, cyanosis, or edema. No obvious deformities. NEUROLOGICAL: Awake and alert. No obvious cranial nerve deficits. Motor grossly within normal limits. Five out of 5 muscle strength in the arms and legs. Normal speech. PSYCHIATRIC: Appropriate mood and affect; insight and judgment normal. (Matthew Hanson) Data Data Last Documented VS Vital Signs Date Time Temp Pulse Resp B/P (MAP) Pulse Ox O2 Delivery O2 Flow Rate FiO2 04/05/17 19:09 98.5 78 16 123/87 (99) 96 Room Air (Ricki Hong MD) Orders Orders Complete Blood Count With Diff (04/05/17 22:08) Comprehensive Metabolic Panel (04/05/17 22:08) Lipase (04/05/17 22:08) Lactic Acid (04/05/17 22:08) Prothrombin Time / Inr (Pt) (04/05/17 22:08) Act Partial Throm Time (Ptt) (04/05/17 22:08) Urinalysis - C+S If Indicated (04/05/17 22:08) Ct Abd/Pel W Iv Contrast(Rout) (04/05/17 22:08) Iv Access Insert/Monitor (04/05/17 22:08) Ecg Monitoring (04/05/17 22:08) Oximetry (04/05/17 22:08) Ondansetron Inj (Zofran Inj) (04/05/17 22:15) Sodium Chlor 0.9% 1000 Ml Inj (Ns 1000 M (04/05/17 22:08) Sodium Chloride 0.9% Flush (Ns Flush) (04/05/17 22:15) Morphine Inj (Morphine Inj) (04/05/17 22:15) Famotidine Inj (Pepcid Inj) (04/05/17 23:00) Lidocaine 2% Viscous (Xylocaine 2% Visco (04/06/17 00:30) Al-Mag Hy-Si 40-40-4 Mg/Ml Liq (Mag-Al P (04/06/17 00:30) Ed Discharge Order (04/06/17 00:40) (Ricki Hong MD) Labs Laboratory Tests Test 04/05/17 22:21 04/05/17 22:22 Urine Color YELLOW Urine Turbidity CLEAR Urine pH 6.0 Urine Specific [place] 1.025 Urine Protein TRACE mg/dL Urine Glucose (UA) NEG mg/dL Urine Ketones NEG mg/dL Urine Occult Blood NEG Urine Nitrite NEG Urine Bilirubin NEG Urine Urobilinogen LESS THAN 2.0 MG/DL Urine Leukocyte Esterase NEG Urine RBC LESS THAN 1 /hpf Urine WBC 1 /hpf Urine Squamous Epithelial Cells <1 /hpf Urine Mucus FEW /lpf Microscopic Urinalysis Comment CULT NOT INDICATED White Blood Count 8.3 TH/MM3 Red Blood Count 4.50 MIL/MM3 Hemoglobin 12.2 GM/DL Hematocrit 36.9 % Mean Corpuscular Volume 82.2 FL Mean Corpuscular Hemoglobin 27.2 PG Mean Corpuscular Hemoglobin Concent 33.1 % Red Cell Distribution Width 14.4 % Platelet Count 212 TH/MM3 Mean Platelet Volume 8.2 FL Neutrophils (%) (Auto) 66.0 % Lymphocytes (%) (Auto) 26.9 % Monocytes (%) (Auto) 6.1 % Eosinophils (%) (Auto) 0.4 % Basophils (%) (Auto) 0.6 % Neutrophils # (Auto) 5.5 TH/MM3 Lymphocytes # (Auto) 2.2 TH/MM3 Monocytes # (Auto) 0.5 TH/MM3 Eosinophils # (Auto) 0.0 TH/MM3 Basophils # (Auto) 0.1 TH/MM3 CBC Comment DIFF FINAL Differential Comment Prothrombin Time 10.0 SEC Prothromb Time International Ratio 1.0 RATIO Activated Partial Thromboplast Time 23.2 SEC Blood Urea Nitrogen 12 MG/DL Creatinine 0.89 MG/DL Random Glucose 99 MG/DL Total Protein 7.7 GM/DL Albumin 3.5 GM/DL Calcium Level 8.6 MG/DL Alkaline Phosphatase 70 U/L Aspartate Amino Transf (AST/SGOT) 13 U/L Alanine Aminotransferase (ALT/SGPT) 22 U/L Total Bilirubin 0.4 MG/DL Sodium Level 138 MEQ/L Potassium Level 3.4 MEQ/L Chloride Level 103 MEQ/L Carbon Dioxide Level 30.4 MEQ/L Anion Gap 5 MEQ/L Estimat Glomerular Filtration Rate 79 ML/MIN Lactic Acid Level 0.7 mmol/L Lipase 179 U/L (Ricki Hong MD) [facility] Medical Decision Making Medical Screen Exam Complete: Yes Emergency Medical Condition: Yes Differential Diagnosis Colitis. Abdominal pain. Pyelonephritis. Renal colic. Pancreatitis. Gastritis. Narrative Course Patient is medically stable at time of exam. My suspicion for an acute abdomen is very low however the patient was sent here for CT scan and family is adamant. Labs ordered including CBC, CMP, lipase, and urinalysis. CT of the abdomen/pelvis with IV contrast was ordered. Patient is given 2 mg morphine IV, as well as 4 mg Zofran IV. Patient is given 20 mg Pepcid IV. Patient is given 1000 mg normal saline bolus. CBC is unremarkable. 2300 hrs. all labs and CT are pending. Patient is discussed with Dr. Hong who assumes care will determine final disposition and treatment plan. (Matthew Hanson) Diagnosis Primary Impression: Gastritis Qualified Codes: K29.70 - Gastritis, unspecified, without bleeding Condition: Stable Matthew Hanson Apr 05, 2017 22:18 Ricki Hong MD Apr 06, 2017 00:52
[2017-04-05 22:33] LABS: AUTOMATED NEUTROPHIL # 5.5 TH/MM3 (1.8-7.7); BASOPHIL # 0.1 TH/MM3 (0-0.2); BASOPHIL % 0.6 % (0.0-2.0); EOSINOPHIL % 0.4 % (0.0-4.0); HEMATOCRIT 36.9 % (35.0-46.0); HEMOGLOBIN 12.2 GM/DL (11.6-15.3); LYMPH % 26.9 % (9.0-44.0); LYMPHOCYTE # 2.2 TH/MM3 (1.0-4.8); MEAN CELL VOLUME 82.2 FL (80.0-100.0); MEAN CORPUSCULAR HEMOGLOBIN 27.2 PG (27.0-34.0); MEAN CORPUSCULAR HGB CONC 33.1 % (32.0-36.0); MEAN PLATELET VOLUME 8.2 FL (7.0-11.0); MONO % 6.1 % (0.0-8.0); MONOCYTE # 0.5 TH/MM3 (0-0.9); PLATELET COUNT 212 TH/MM3 (150-450); RED CELL DISTRIBUTION WIDTH 14.4 % (11.6-17.2); WHITE BLOOD COUNT 8.3 TH/MM3 (4.0-11.0)
[2017-04-05 22:45] LABS: BILIRUBIN, URINE NEG (NEG); BLOOD, URINE NEG (NEG); GLUCOSE,URINE NEG (NEG); KETONE, URINE NEG (NEG); MUCUS URINE FEW /lpf (OCC); NITRITE,URINE NEG (NEG); SQUAMOUS EPITHELIAL CELL URINE <1 /hpf (0-5); URINE COLOR YELLOW (YELLW/STRAW); URINE LEUKOCYTE ESTERASE NEG (NEG)
[2017-04-05 22:51] LABS: ALBUMIN 3.5 GM/DL (3.4-5.0); AST (GOT) 13 U/L (15-37); BICARBONATE 30.4 MEQ/L (21.0-32.0); BLOOD UREA NITROGEN 12 MG/DL (7-18); CALCIUM 8.6 MG/DL (8.5-10.1); CHLORIDE 103 MEQ/L (98-107); CREATININE 0.89 MG/DL (0.50-1.00); GLOMERULAR FILTRATION RATE 79 ML/MIN (>89); GLUCOSE,RANDOM 99 MG/DL (74-106); LIPASE 179 U/L (73-393); SODIUM (NA) 138 MEQ/L (136-145)
[2017-04-05 22:53] LABS: ALT (GPT) 22 U/L (10-53)
[2017-04-05 22:54] LABS: ALKALINE PHOSPHATASE 70 U/L (45-117); TOTAL BILIRUBIN ADULT 0.4 MG/DL (0.2-1.0); TOTAL PROTEIN 7.7 GM/DL (6.4-8.2)
[2017-04-05] MEDS ORDERED: FAMOTIDINE 20 MG/2 ML VIAL IV PUSH ONE (23:00)
[2017-04-05] MEDS ORDERED: IOHEXOL 350 MG/ML 10 ML VIAL (for RAD DIAG) IVCONTRAST ONE (23:23)
--- NOTE | 2017-04-06 00:09 | RADRPT ---
EXAM DATE/TIME: 04/05/2017 23:23 [facility] COMPARISON: CT ABDOMEN & PELVIS W CONTRAST, April 22, 2016, 23:35. INDICATIONS : Left upper quadrant pain. IV CONTRAST: 100 cc Omnipaque 350 (iohexol) IV ORAL CONTRAST: No oral contrast ingested. RADIATION DOSE: 8.90 CTDIvol (mGy) MEDICAL HISTORY : Hypertension. Gastroesophageal reflux disease. SURGICAL HISTORY : Tubal ligation. Hernia repair. ENCOUNTER: Initial ACUITY: 1 day PAIN SCALE: 8/10 LOCATION: Left upper quadrant TECHNIQUE: Volumetric scanning of the abdomen and pelvis was performed. Using automated exposure control and ad justment of the mA and/or kV according to patient size, radiation dose was kept as low as reasonably achievable to obtain optimal diagnostic quality images. DICOM format image data is available electro nically for review and comparison. FINDINGS: LOWER LUNGS: The visualized lower lungs are clear. LIVER: Homogeneous density without lesion. There is no dilation of the biliary tree. No gallbladder, surgi arlette removed. There is stable hepatic cysts in the right lobe of the liver measuring approximately 7 mm and 1.8 cm.. SPLEEN: Normal size without lesion. PANCREAS: Within normal limits. KIDNEYS: Normal in size and shape. There is no mass, stone or hydronephrosis. ADRENAL GLANDS: Within normal limits. VASCULAR: There is no aortic aneurysm. BOWEL/MESENTERY: Bowel gas pattern is within normal limits. There appears to be some prominence of the appendix measur ing 1.2 cm with some thickening of the wall. This is increased in size compared to the prior CT scan. There appears to be some mild inflammatory changes in the surrounding mesenteric fat. No free fluid is seen. There is stool throughout the colon. There is no evidence of obstruction. ABDOMINAL WALL: Within normal limits. RETROPERITONEUM: There is no lymphadenopathy. BLADDER: No wall thickening or mass. REPRODUCTIVE: Patient has a bulky fibroid uterus. This is not significant change compared to the prior study. INGUINAL: There is no lymphadenopathy or hernia. MUSCULOSKELETAL: Within normal limits for patient age. CONCLUSION: 1. There appears to be some prominence of the appendix compared to the prior exam measuring approxima tely 1.2 cm in diameter. There is some mild inflammatory changes in the surrounding mesenteric fat. T his finding suggests possible early appendicitis. Recommend correlation with patient's physical, clin ical exam and laboratory values. No free fluid or loculated fluid collections are demonstrated. 2. Stable hepatic cyst in the right lobe of the liver. 3. Bulky fibroid uterus without significant change. Lenny Mg MD on April 05, 2017 at 23:59 Board Certified Radiologist. This report was verified electronically.
[2017-04-06] MEDS ORDERED: ALUMINUM/MAGNESIUM/SIMETH 30 ML CUP PO ONE (00:30)
[2017-04-06] MEDS ORDERED: LIDOCAINE VISCOUS 2% SOLN 15 ML UDC SWISH-SWAL ONE (00:30)
[2017-04-06] MEDS ORDERED: OMEP40CA2 PO (17:34)
[2017-04-06] MEDS ORDERED: MAGICADU2 SWISH-SWAL (17:34)
== END 2017-04-06 01:16 | disposition home or self-care (01) ==
LOC: NEPC 19:05
DX: I10 Essential (primary) hypertension (principal); J45.909 Unspecified asthma, uncomplicated; K21.9 Gastro-esophageal reflux disease without esophagitis; K29.70 Gastritis, unspecified, without bleeding
CPT/HCPCS: 74177; 80053; 81001; 83605; 83690; 85025; 85610; 85730; 99284; J2270; J2405; J7030; Q9967